=== PATIENT | female | born 1970 | race Two or more races ===

== ENCOUNTER 2016-09-07 17:31 | Emergency (ER) | payer MEDICAID ==
[~2016-09-07] VITALS: Ht 157.5 cm; Wt 126.6 kg
[~2016-09-07 17:31] MED LIST: ACAR25TA; GLYB5TAB8
[2016-09-07 19:45] VITALS: BP 145/62
[2016-09-07] MEDS ORDERED: KETOROLAC TROMETH 60MG/2ML VIAL IM ONE (20:00)
== END 2016-09-07 20:47 | disposition home or self-care (01) ==
LOC: ER 17:39
DX: M50.30 Other cervical disc degeneration, unspecified cervical region (principal); E11.9 Type 2 diabetes mellitus without complications; M54.12 Radiculopathy, cervical region; M54.9 Dorsalgia, unspecified; G89.29 Other chronic pain; Z88.0 Allergy status to penicillin; Z88.6 Allergy status to analgesic agent
CPT/HCPCS: 96372; 99283; J1885

== ENCOUNTER 2018-02-08 16:33 | Emergency (ER) | payer MEDICAID ==
[~2018-02-08] VITALS: Ht 157.5 cm; Wt 132.0 kg
[2018-02-08 16:45] VITALS: BP 157/81
== END 2018-02-08 17:47 | disposition home or self-care (01) ==
LOC: ER 16:40
DX: T78.40XA Allergy, unspecified, initial encounter (principal); H66.91 Otitis media, unspecified, right ear; E11.9 Type 2 diabetes mellitus without complications; Z90.49 Acquired absence of other specified parts of digestive tract; Z90.89 Acquired absence of other organs; Z88.0 Allergy status to penicillin; Z88.2 Allergy status to sulfonamides; Z88.6 Allergy status to analgesic agent

== ENCOUNTER 2018-07-04 18:20 | Emergency (ER) | payer MEDICAID ==
[~2018-07-04] VITALS: Ht 157.5 cm; Wt 125.6 kg
[2018-07-04 18:40] VITALS: BP 145/86
== END 2018-07-04 21:53 | disposition home or self-care (01) ==
LOC: ER 18:20
DX: M77.9 Enthesopathy, unspecified (principal); M25.531 Pain in right wrist; E11.9 Type 2 diabetes mellitus without complications; Z90.49 Acquired absence of other specified parts of digestive tract; Z88.0 Allergy status to penicillin; Z88.2 Allergy status to sulfonamides; X50.0XXA Overexertion from strenuous movement or load, initial encounter; Y93.B9 Activity, other involving muscle strengthening exercises; Y92.89 Other specified places as the place of occurrence of the external cause; Y99.8 Other external cause status
CPT/HCPCS: 29125; 73130

== ENCOUNTER 2018-09-12 07:55 | Emergency (ER) | payer MEDICAID ==
[2018-09-12] MEDS ORDERED: cloNIDine HCL 0.1 MG TAB PO ONE (08:30)
[2018-09-12] MEDS ORDERED: cefTRIAXone 1GM/50ML D5W 50 ML IV ONE ×2 (08:30)
[2018-09-12] MEDS ORDERED: SODIUM CHLORIDE 0.9% 1,000 ML IV ONE (08:30)
[2018-09-12 09:00] LABS: Basophils # (auto) 0.1 uL; Basophils % (auto) 0.4 % (0.0-2.0); Eosinophils # (auto) 0.1 uL; Eosinophils % (auto) 0.7 % (0.0-7.0); Hematocrit 41.4 % (36.0-46.0); Lymphocytes # (auto) 3.5 uL; Lymphocytes % (auto) 21.3 % (10.0-50.0); Mean Corpuscular Hemoglobin 29.1 pg (28.0-32.0); Mean Corpuscular Hgb Conc. 33.9 g/dL (32.0-36.0); Monocytes # (auto) 1.2 uL; Monocytes % (auto) 7.2 % (0.0-12.0); Neutrophils # (auto) 11.6 uL; Neutrophils % (auto) 70.4 % (37.0-80.0); Platelet Count (auto) 302 10^3/uL (140-450); Red Blood Cells 4.81 10^6/uL (4.0-5.20); Red Cell Distribution Width 14.2 % (11.8-14.3); White Blood Cell 16.5 10^3/uL (4.4-10.8)
[2018-09-12 09:13] LABS: BUN/Creatinine Ratio 12.9; Calcium 8.5 mg/dL (8.5-10.1); Potassium 3.6 mmol/L (3.5-5.1)
[2018-09-12 10:10] VITALS: BP 156/100
== END 2018-09-12 10:21 | disposition home or self-care (01) ==
LOC: ER 07:57
DX: J34.0 Abscess, furuncle and carbuncle of nose (principal); E11.65 Type 2 diabetes mellitus with hyperglycemia; I10 Essential (primary) hypertension; Z88.5 Allergy status to narcotic agent; Z88.0 Allergy status to penicillin; Z88.2 Allergy status to sulfonamides; Z88.6 Allergy status to analgesic agent; Z88.8 Allergy status to other drugs, medicaments and biological substances; Z79.899 Other long term (current) drug therapy; Z79.84 Long term (current) use of oral hypoglycemic drugs; Z90.49 Acquired absence of other specified parts of digestive tract
CPT/HCPCS: 36415; 80048; 82962; 85025; 96365; 96366; 99283; J0696; J7030

== ENCOUNTER 2018-09-13 11:53 | Emergency (ER) | payer MEDICAID ==
[~2018-09-13] VITALS: Ht 157.5 cm; Wt 127.9 kg
[2018-09-13 12:20] VITALS: BP 110/75
[2018-09-13] MEDS ORDERED: LIDOCAINE 1% HCL (LOCAL ANESTH.) INJ 20ML MDV IJ ONE (13:15)
[2018-09-13] MEDS ORDERED: cefTRIAXone 1GM/50ML D5W 50 ML IV ONE ×2 (13:45)
[2018-09-13] MEDS ORDERED: KETOROLAC TROMETH 30 MG/ML 1ML VIAL IV ONE (13:45)
== END 2018-09-13 14:44 | disposition home or self-care (01) ==
LOC: ER 11:57
DX: J34.0 Abscess, furuncle and carbuncle of nose (principal); E11.9 Type 2 diabetes mellitus without complications; I10 Essential (primary) hypertension; Z90.49 Acquired absence of other specified parts of digestive tract; Z88.0 Allergy status to penicillin; Z88.2 Allergy status to sulfonamides; Z88.6 Allergy status to analgesic agent
CPT/HCPCS: 10060; 96365; 96375; 99283; J0696; J1885

== ENCOUNTER 2023-08-19 15:43 | Emergency (ER) | payer MEDICAID ==
[~2023-08-19] VITALS: Ht 157.5 cm; Wt 101.9 kg
[2023-08-19 20:51] VITALS: BP 159/103; PULSE 90; RESP 20; TEMP 98.7; O2SAT 96
[2023-08-19] MEDS ORDERED: KETOROLAC TROMETH 60MG/2ML VIAL IM ONE (21:00)
[2023-08-19] MEDS ORDERED: IBUP-1456 PO (22:27)
== END 2023-08-19 23:03 | disposition home or self-care (01) ==
LOC: ER 15:43
DX: S83.8X2A Sprain of other specified parts of left knee, initial encounter (principal); G89.29 Other chronic pain; M25.562 Pain in left knee; E11.65 Type 2 diabetes mellitus with hyperglycemia; I10 Essential (primary) hypertension; E11.9 Type 2 diabetes mellitus without complications; Z98.890 Other specified postprocedural states; Z88.8 Allergy status to other drugs, medicaments and biological substances; Z79.899 Other long term (current) drug therapy; X58.XXXA Exposure to other specified factors, initial encounter; Y93.89 Activity, other specified; Y92.89 Other specified places as the place of occurrence of the external cause; Y99.8 Other external cause status
CPT/HCPCS: 73562; 82962; 96372; 99283; J1885